=== PATIENT | female | born 1950 ===

== ENCOUNTER 2016-10-21 10:21 | Day surgery (SDC) | payer MEDICARE, OTHER ==
[~2016-10-21] VITALS: Ht 149.9 cm; Wt 50.8 kg
[2016-10-21] VITALS (13 sets, daily range): BP systolic 134–158; BP diastolic 56–78
--- NOTE | 2016-10-21 06:50 | Pre-Procedure Note/Attestation ---
Pre-Procedure Note/Attestation Complete Prior to Procedure Planned Procedure: left Procedure Narrative: left knee scope, debridement and resection of loose fragment Indications for Procedure Pre-Operative Diagnosis: left knee loose fragment Attestation I attest that I discussed the nature of the procedure; its benefits; risks and complications; and alternatives (and the risks and benefits of such alternatives ), prior to the procedure, with the patient (or the patient's legal title insurance sales representative). I attest that, if there was a reasonable possibility of needing a blood transfusion, the patient (or the patient's legal title insurance sales representative) was given the [facility] standardized written summary, pursuant to the [place] Blood Safety Act ([place] Health and Safety Code # 1645, as amended). I attest that I re-evaluated the patient just prior to the surgery and that there has been no change in the patient's H&P, except as documented below:NONE REJI CANO October 21, 2016 06:50
[~2016-10-21 10:21] MED LIST: KLONOPIN0.5 MG ORAL; SUPER B COMPLE150 MG PO; ZANTAC150 MG ORAL; ceFAZolin 1gm in D5W 55ml IVP ONE; celeBREX 200mg Cap **SURGERY PATIENTS ONLY ORAL ONE; oxyCONTIN 20mg tab ORAL ONE
[2016-10-21] MEDS ORDERED: LR 1000ml 1,000 ML IVLG SCH (11:48)
[2016-10-21] MEDS ORDERED: Ropivacaine 5mg/ml Vial 20ml INJ ONE (11:48)
--- NOTE | 2016-10-21 11:48 | Anethesia Preoperative Eval ---
Anesthesia Pre-op PMH/ROS General Date of Evaluation: October 21, 2016 Time of Evaluation: 12:49 Anesthesiologist: Jose Elias ASA Score: ASA 2 Mallampati Score Class I : Soft palate, uvula, fauces, pillars visible Class II: Soft palate, uvula, fauces visible Class III: Soft palate, base of uvula visible Class IV: Only hard plate visible Mallampati Classification: Class II Surgeon: Hyacinth Diagnosis: L Knee Pain Surgical Procedure: L Knee Arthroscopy Anesthesia History: none Family History: no anesthesia problems Allergies: Coded Allergies: CODEINE (Verified Allergy, Severe, 10/21/16) Medications: see eMAR Past Medical History Cardiovascular: Reports: HTN Pulmonary: Reports: asthma Gastrointestinal/Genitourinary: Reports: GERD Neurologic/Psychiatric: Reports: depression/anxiety PSxH Narrative: R Knee Arthroscopy Anesthesia Pre-op Phys. Exam Physician Exam Last Vital Signs Date Time Temp Pulse Resp B/P Pulse Ox O2 Delivery O2 Flow Rate FiO2 10/21/16 10:53 98.8 91 24 148/70 98 Room Air Constitutional: NAD Neurologic: CN 2-12 intact Cardiovascular: RRR Respiratory: CTA Gastrointestinal: S/NT/ND Airway Exam Mallampati Score: Class II MO: full ROM: full Teeth: intact Anesthesia Pre-op A/P Risk Assessment & Plan Assessment: ASA 2 Plan: GA, BIS Status Change Before Surgery: No Pre-Antibiotics Dru Grams Ancef IV Given Within 1 Hr of Incision: Yes Time Given: 13:11 Loi Moctezuma MD October 21, 2016 11:48
--- NOTE | 2016-10-21 11:50 | Immediate Post-Op Evaluation ---
Immediate Post-Op Evalulation Immediate Post-Op Evalulation Procedure: L Knee Arthroscopy Date of Evaluation: October 21, 2016 Time of Evaluation: 14:17 IV Fluids: 800 LR Blood Products: 0 Estimated Blood Loss: 4 Urinary Output: 0 Blood Pressure Systolic: 158 Blood Pressure Diastolic: 75 Pulse Rate: 75 Respiratory Rate: 16 O2 Sat by Pulse Oximetry: 100 Temperature (Fahrenheit): 99.2 Pain Score (1-10): 2 Nausea: No Vomiting: No Complications 0 Patient Status: awake, reacts, patent, extubated, none Hydration Status: adequate Dru Grams Ancef IV Given Within 1 Hr of Incision: Yes Time Given: 13:11 Loi Moctezuma MD October 21, 2016 11:50
--- NOTE | 2016-10-21 11:50 | 48 Hour Post Anesthesia Eval ---
Post Anesthesia Evaluation Procedure: L Knee Arthroscopy Date of Evaluation: October 21, 2016 Time of Evaluation: 16:18 Blood Pressure Systolic: 146 0: 71 Pulse Rate: 79 Respiratory Rate: 18 Temperature (Fahrenheit): 99.2 O2 Sat by Pulse Oximetry: 100 Airway: patent Nausea: No Vomiting: No Pain Intensity: 2 Hydration Status: adequate Cardiopulmonary Status: Stable Mental Status/LOC: patient returned to baseline Follow-up Care/Observations: 0 Post-Anesthesia Complications: 0 Follow-up care needed: ready to discharge Loi Moctezuma MD October 21, 2016 11:50
[2016-10-21] MEDS ORDERED: DiphenhydrAMINE 50mg/ml Inj IVP PRN (12:00)
[2016-10-21] MEDS ORDERED: Metoclopramide 10mg/2ml Inj IVP PRN (12:00)
[2016-10-21] MEDS ORDERED: LORazepam Inj 2mg/ml 1ml IV PRN (12:00)
[2016-10-21] MEDS ORDERED: Hydromorphone 0.5mg/0.5ml inj IVP PRN (12:00)
[2016-10-21] MEDS ORDERED: Oxycodone/Acetaminophen 5-325 ORAL PRN (12:00)
[2016-10-21] MEDS ORDERED: Atropine Inj 1mg/10ml Syr IV PRN (12:00)
[2016-10-21] MEDS ORDERED: Midazolam 2mg/2ml Inj IVP PRN (12:00)
[2016-10-21] MEDS ORDERED: fentaNYL 100 mcg/2 mL IV PRN (12:00)
[2016-10-21] MEDS ORDERED: Norco 5mg/325mg tab ORAL PRN ×2 (12:00→14:00)
[2016-10-21] MEDS ORDERED: Ketorolac 30mg Inj IV PRN (12:00)
[2016-10-21] MEDS ORDERED: Norco 7.5mg/325mg tab ORAL PRN (12:00)
[2016-10-21] MEDS ORDERED: Meperidine 25mg/0.5ml Inj IV PRN (12:00)
[2016-10-21] MEDS ORDERED: Ketorolac 60mg Inj IV PRN (12:00)
[2016-10-21] MEDS ORDERED: Lidocaine 1% MPF 10mg/ml 5ml ONE (13:00)
[2016-10-21] MEDS ORDERED: Propofol 10mg/ml 20ml IV ONE (13:00)
[2016-10-21] MEDS ORDERED: LR 1000ml ONE (13:00)
[2016-10-21] MEDS ORDERED: Alfentanil 2ml Inj ONE (13:00)
[2016-10-21] MEDS ORDERED: NS Irrig 4000ml IRRIG ONE (13:00)
--- NOTE | 2016-10-21 13:59 | Brief Operative Note ---
Immediate Post Operative Note Operative Note Chief Complaint: left knee pain Pre-op Diagnosis: left knee loose fragment Procedure: left knee scope, lateral meniscectomy and resection of loose fragment Post-op Diagnosis: same as pre-op Findings: consistent w/pre-op dx studies Surgeon: md cristina Anesthesiologist: md Claudy Anesthesia: general Specimen: none Complications: none Condition: stable Estimated Blood Loss: minimal Drains: none Implant(s) used?: No GEORGE POWER October 21, 2016 13:59
[2016-10-21] MEDS ORDERED: D5 1/2NS 1,000 ML IV SCH (14:00)
[2016-10-21] MEDS ORDERED: HYDROmorphone 1mg/ml Carpuject SUBQ PRN (14:00)
--- NOTE | 2016-10-21 22:48 | Operative Note - Dictated ---
DATE OF OPERATION: 10/21/2016 SURGERY DATE: 10/21/2016. PREOP DX: 1. Left knee possible posterior horn medial meniscus tearing. 2. Left knee loose fragment and notch. POSTOP DX: 1. Left knee lateral meniscus tearing and a free edge at the junction of posterior horn and body measuring 15% of the lateral meniscus. 2. Left knee loose fragment within the notch measuring 1 cm osteochondral loose fragment. 3. No significant arthritis in the patellofemoral joint, lateral compartment or medial compartment. PROCEDURE: 1. Left knee arthroscopy and extensive intra-articular shaving. 2. Left knee resection of loose fragment from the notch. 3. Left knee partial lateral meniscectomy involving 50% of junction of the body and employee placement specialist horn lateral meniscus. SURGEON: Wilfredo Claros M.D. FIRST CRUSHER: None. ANESTHESIOLOGIST: Loi Moctezuma M.D. ANESTHESIA: General LMA anesthesia. TOURNIQUET TIME: 20 minutes. EBL: Minimal COMPLICATIONS: None SURGICAL INDICATION: Patient is a 66-year-old female who sustained the above injury to her knee. The patient was treated non-operative initially, but this did not alleviate the patients symptoms. Therefore, after discussing all non-surgical and surgical options, and discussing all foreseeable risk and benefits of surgery, the patient opted for surgical treatment as described above. PATIENT POSITIONING: Patient was brought to the operating room table and placed supine. All pressure points were well padded. General Anesthesia was induced and a well padded tourniquet was placed on the thigh. The lateral post was placed and positioned to allow for opening of the medial compartment of the knee without placing pressure over the fibular head. Patients entire leg was prepped and draped in the usual sterile fashion. Time out was performed and preop abx was given and after exsanguinating the lower extremity, the tourniquet was inflated to 275 mmHg. EXAMINATION OF THE KNEE UNDER ANESTHESIA: Before prepping and draping the knee and while the patient was relaxed under general anesthesia, the knee was examined for ROM, and anterior and posterior, medial and lateral, posterolateral, and posteromedial instability. Pivot shift testing was performed. There was no evidence of loss of motion or instability and the pivot shift testing was negative. PORTAL PLACEMENT: The lateral portal was placed with the knee flexed to 90 degrees at the level of inferior border of the patella in line with the lateral border of the patella. A cm skin incision was made with an eleven blade, and using a blunt obturator, the capsule was gently penetrated. Sterile saline solution was then infused inside the knee with the aid of a pump set at 35 mm mercury pressure. Under direct visualization, placement of the medial portal was preliminary judged using a spinal needle, and it was subsequently established using the same technique as the lateral portal. Care was given not to injure the cutaneous branches of the medial Saphenous nerve or the subcutaneous veins. DIAGNOSTIC ARTHROSCOPY: The suprapatellar patellar pouch was visualized. There was no evidence of scar tissue or loose fragments. The medial and lateral patellar facets and trochlear groove articular cartilage was visualized. These structures were intact and were devoid of any articular cartilage damage. The medial plica shelf and the corresponding medial femoral condyle articular cartilage were visualized. There was no significantly thickening of the medial plica shelf and there were no kissing? lesion over the medial femoral condyle. The lateral gutter and the posterolateral corner of the knee were visualized. There were no loose bodies, and the popliteus tendon and other structures of the posterolateral corner of the knee were intact intra-articularly. At this point, the knee was placed in the figure of four position and the lateral compartment was entered. The lateral femoral condyle, lateral tibial plateau, and the anterior, body, and the posterior horn of the lateral meniscus were visualized and probed. The articular surfaces were intact and devoid of articular cartilage damage. There was evidence of a free edge lateral meniscus tearing at the junction of body and posterior horn. This involves 15% of the lateral meniscus. The knee was then placed at 90 degree and the ACL and PCL were visualized and probed. The ACL was completely intact on visualization and probing, and it had excellent tension. However, there was a loose fragment sitting next to the ACL measuring 1 x 1 cm. This was a osteochondral loose fragment. The PCL was completely intact on visualization and probing and it had excellent tension. The medial compartment was then entered and the medial femoral condyle, medial tibial plateau, and the anterior, body, and the posterior horn of the medial meniscus were visualized and probed. The articular surfaces were intact and devoid of articular cartilage damage. The medial meniscus was completely intact both on its undersurface and on the top. The medial gutter was visualized. There was no evidence of defect or loose fragments. The scope was then brought back to the patella femoral compartment. OPERATIVE ARTHROSCOPY: At this point, all loose debris and fragments were removed with the use of suction motorized shaver. Specific attention was given to assure all visible loose fragments were irrigated out of the knee joint with pump inflow and cannula outflow system. The loose fragments were identified and visualized. Using combination of the shaver, suction, and graspers, these loose fragments were removed. These loose fragments measured approximately 1 cm. All debris left behind was removed with combination of manisha and graspers. At this point, attention was given to the lateral meniscus. Using combination of baskets and manisha, the torn portion of the lateral meniscus was removed. Attention was given to remove all displaced and unstable portion of the lateral meniscus while maintaining as much of the functional portion of the meniscus as possible. Approximately, 15% of the posterior horn body of the meniscus was removed in this fashion. The transition between the meniscectomy portion and intact portion of the meniscus was smoothed out with combination of small baskets and manisha. Excellent transition zone was obtained in this fashion. CONDITION AT DISCHARGE FROM OPERATING ROOM: The knee was irrigated with copious amount of normal saline at the end of the procedure. The scope was removed and the water was drained. The skin edges were re-approximated and sterile dressing was applied. All lap count and instrument counts were correct. Patient tolerated the procedure well without complications and was taken to the recovery room in stable condition. Wilfredo Claros M.D. DR: PATTI JOB#: [id number] CC:
== END 2016-10-21 16:55 | disposition home or self-care (01) ==
LOC: SUR 10:21
DX: M23.252 Derangement of posterior horn of lateral meniscus due to old tear or injury, left knee (principal); M23.42 Loose body in knee, left knee; J45.30 Mild persistent asthma, uncomplicated; I10 Essential (primary) hypertension; F41.9 Anxiety disorder, unspecified; F32.9 Major depressive disorder, single episode, unspecified; K21.9 Gastro-esophageal reflux disease without esophagitis; L40.9 Psoriasis, unspecified; L30.9 Dermatitis, unspecified; R32 Unspecified urinary incontinence; M79.7 Fibromyalgia; I34.0 Nonrheumatic mitral (valve) insufficiency; I36.1 Nonrheumatic tricuspid (valve) insufficiency; M17.0 Bilateral primary osteoarthritis of knee; Z90.710 Acquired absence of both cervix and uterus; Z88.5 Allergy status to narcotic agent
CPT/HCPCS: 29881; J0690; J1200; J2405; J2704; J2795; J3010; J3490; J7120; 94003; 94150